=== PATIENT | male | born 1970 | race Caucasian/White ===

== ENCOUNTER 2019-09-08 16:30 | Emergency (ER) | payer OTHER ==
[~2019-09-08] VITALS: Ht 170.2 cm; Wt 89.8 kg
== END 2019-09-08 19:31 | disposition home or self-care (01) ==
LOC: ER 16:30
DX: S61.220A Laceration with foreign body of right index finger without damage to nail, initial encounter (principal); W25.XXXA Contact with sharp glass, initial encounter; Y93.89 Activity, other specified; Y92.098 Other place in other non-institutional residence as the place of occurrence of the external cause; Y99.8 Other external cause status

== ENCOUNTER → 2019-09-18 | Emergency (ER) | payer OTHER ==
[~2019-09-18] VITALS: Ht 182.9 cm; Wt 89.8 kg
== END | disposition left against medical advice (07) ==
LOC: ER 05:03
DX: Z53.20 Procedure and treatment not carried out because of patient's decision for unspecified reasons (principal)

== ENCOUNTER 2019-09-19 10:49 | Emergency (ER) | payer OTHER ==
[~2019-09-19] VITALS: Ht 182.9 cm; Wt 89.8 kg
== END 2019-09-19 12:05 | disposition home or self-care (01) ==
LOC: ER 10:49
DX: Z48.02 Encounter for removal of sutures (principal)